=== PATIENT | female | born 1970 | race Caucasian/White ===

== ENCOUNTER 2019-11-21 02:08 | Emergency (ER) | payer SELFPAY ==
[2019-11-21 02:10] VITALS: BP 137/60; PULSE 79; RESP 16; TEMP 37; O2SAT 100; BMI 27.8
--- NOTE | 2019-11-21 02:21 | EKG12_ITS ---
Test Reason : ANXIETY Blood Pressure : / mmHG Vent. Rate : 071 BPM Atrial Rate : 071 BPM P-R Int : 134 ms QRS Dur : 098 ms QT Int : 380 ms P-R-T Axes : 000 060 047 degrees QTc Int : 412 ms Normal sinus rhythm Normal ECG Confirmed by CLAYTON ESPOSITO, CEDRIC ([id number]), editor dictionary LINDSAY ZURITA ([id number]) on 11/22/2019 8:35:51 AM Referred By: ROSELINE Confirmed By:CEDRIC ARNOLD MD
--- NOTE | 2019-11-21 02:23 | ED.VIS.GEN ---
History of Present Illness Chief Complaint: Anxiety Informant: Patient Onset: Today Context: Sudden Onset Timing: Continuous Current Severity: Mild Maximum Severity: Moderate Narrative: The patient is a 49-year-old female with no significant medical history that presents to the emergency department with sudden onset heart racing, shortness of breath, and overwhelming feeling of panic. The patient states that she has been under some stress lately. She states that she went to lay down. She felt like her heart was beating strongly out of her chest. She states that she felt mildly nauseated and had tingling in her extremities. She states she did have something similar a few years ago. She saw her primary care who placed her on lorazepam. She states she is only had to use it sparingly, maybe twice within 5 years. She states that [place] did [place], but that has passed. She does admit to some mild stress. She has no history of cardiovascular disease. She is on no other daily medications. Prior similar symptoms: Yes Recent Illness/Hospitalization: No Past Medical History - Allergies and Home Meds Allergies/Adverse Reactions: Allergies No Known Allergies Allergy (Verified 11/21/19 02:09) Primary Care Physician: Tushar Xavier DO [Primary Care Provider] - Prior records reviewed: Yes Past Medical History: None Surgical History: no surgical history Smoking Status: Never smoker Review of Systems General: Denies: Chills, Fever, Sweats Eyes: Denies: Visual changes - bilaterally, Diplopia ENT: Denies: Rhinorrhea, Sore throat Cardiovascular: Reports: Palpitations, Heart racing. Denies: Chest pain Respiratory: Denies: Dyspnea, Cough, Dyspnea on exertion Gastrointestinal: Reports: Nausea. Denies: Abdominal pain, Vomiting, Diarrhea, Melena, Hematochezia Genitourinary: Denies: Dysuria, Hematuria, Frequency Musculoskeletal: Denies: Back pain, Extremity Pain Skin: Denies: Rash, Wounds Neurological: Denies: Headache, Weakness, Numbness Physical Exam Vital Signs/Narrative: Vital Signs Temp Pulse Resp BP Pulse Ox 11/21/19 02:10 98.6 F 79 16 137/60 H 100 Inital Vital Signs reviewed: Yes General: Well nourished, Well developed, No Acute Distress Head: Normocephalic, Atraumatic Eyes: Perrl, EOMI ENT: Moist mucous membranes, No rhinorrhea Neck: Supple, Nontender Cardiovascular: Regular rate, Regular rhythm, No murmurs Respiratory: No distress, CTA bilaterally, Chest nontender Abdomen: Soft, Nontender, Nondistended, Normal bowel sounds Back: Nontender, Normal Inspection Extremities: Nontender, No edema Skin: Normal color, No rash Neurological: Alert, Oriented x3, Cranial nerves II-XII grossly intact, Normal Strength, Normal Sensation Psychological: Normal affect, Normal Mood Diagnostic/Tx/Re-eval Abnormal Lab Results 11/21/19 11/21/19 02:50 02:50 WBC 6.2 RBC 3.33 L Hgb 10.9 L Hct 32.6 L MCV 97.9 MCH 32.7 H MCHC 33.4 RDW Std Deviation 43.3 RDW Coeff of Noemi 12.0 Plt Count 161 MPV 10.2 Immature Gran % (Auto) 0.300 Neut % (Auto) 70.0 Lymph % (Auto) 19.1 [place] % (Auto) 8.2 Eos % (Auto) 1.9 Baso % (Auto) 0.5 Absolute Neuts (auto) 4.4 Absolute Lymphs (auto) 1.19 Nucleated RBC % 0 Sodium 139 Potassium 3.5 Chloride 108 H Carbon Dioxide 29.0 Anion Gap 2 L BUN 13 Creatinine 0.89 Estim Creat Clear Calc 66.75 Est GFR (MDRD) Af Amer 87 Est GFR (MDRD) Non-Af 72 BUN/Creatinine Ratio 14.5 Glucose 103 Calcium 8.4 L - Rhythm Strip Rhythm Strip: Sinus Rhythm Rate: 80 Ectopy: None - EKG Initial EKG Interpretation: Sinus Rhythm, No Acute Injury Pattern Prior: No Prior - Medical Decision Making The patient symptoms do seem most consistent with an acute stress reaction. Her examination is reassuring. I did have a long conversation with the patient. She was concerned for other causes of her symptoms. Because of this, we did pursue metabolic work-up. EKG was obtained. It was normal sinus rhythm without evidence of acute ischemia. Screening labs are relatively unremarkable. The patient had already taken Ativan prior to arrival. Within an hour, her symptoms have totally resolved. At this point, I do feel that she is safe for discharge. I will give her a refill of her Ativan as she has no signs of abuse. She will be discharged home. Impression 1. Acute anxiety reaction ED Disposition - Plan for ED Patient: Instructions: ED Panic Attack Prescriptions: Lorazepam [Ativan] 0.5 mg PO TID PRN #10 tab PRN Reason: Anxiety Prescription Printed Referrals: Tushar Xavier DO [Primary Care Provider] -
[2019-11-21 02:57] LABS: Absolute Lymphocyte Count 1.19 X10^3/uL (0.83-4.51); Absolute Neutrophil Count 4.4 X10^3/uL (2.0-7.7); Basophil# 0.03 X10^3/uL; Basophil% 0.5 % (0-1); Eosinophil# 0.12 X10^3/uL; Eosinophils% 1.9 % (0-5); Hematocrit 32.6 % (37-47); Hemoglobin 10.9 g/dL (12.0-15.0); Lymphocyte # 1.19 X10^3/ul (4.0); Lymphocyte % 19.1 % (19-41); Mean Corp Hgb Conc 33.4 g/dL (32-36); Mean Corpuscular Hgb 32.7 pg (27.0-32.0); Mean Corpuscular Volume 97.9 fL (81-99); Mean Platelet Vol. 10.2 fl (6.2-12.0); Monocyte# 0.51 X10^3/uL; Monocyte% 8.2 % (0-10); NRBC Flagged by Analyzer 0 % (0-5); Neutrophil # 4.37 X10^3/uL (2.7-7.7); Platelet Count 161 K/mm3 (150-450); RBC Distribution Width SD 43.3 fl (35.1-43.9); Red Blood Count 3.33 M/mm3 (4.2-5.4); White Blood Count 6.2 K/mm3 (4.4-11.0)
[2019-11-21 03:10] LABS: Anion Gap 2 (5-15); BUN 13 mg/dL (7-18); BUN/Creat Ratio 14.5 RATIO (10-20); Calcium,Total 8.4 mg/dL (8.5-10.1); Chloride 108 mmol/L (98-107); Creatinine, Serum 0.89 mg/dL (0.55-1.02); EST Glomerular Filtration Rate 72 mL/min (>60); Est Glom Filt Rate - Afr Amer 87 mL/min (>60); Estimated Creatinine Clearance 66.75 ml/min; Glucose 103 mg/dL (74-106); Potassium 3.5 mmol/L (3.5-5.1); Sodium Level 139 mmol/L (136-145)
[2019-11-21 03:51] VITALS: BP 114/73; PULSE 76; RESP 14; O2SAT 99
== END 2019-11-21 03:52 | disposition home or self-care (01) ==
PROVIDERS: Emergency Provider Emergency Medicine; PCP Family Medicine
DX: F41.1 Generalized anxiety disorder (principal)
CPT/HCPCS: 80048; 85025; 93005; 99284

== ENCOUNTER → 2023-12-22 | Outpatient (CLI) | payer SELFPAY | END | disposition home or self-care (01) | PROVIDERS: PCP Family Medicine; Referring Provider Physician Assistant; Visit Provider Physician Assistant | DX: L03.113 Cellulitis of right upper limb (principal) | CPT/HCPCS: 87070; 87205 ==